=== PATIENT | female | born 1960 | race Caucasian/White ===

== ENCOUNTER 2023-08-29 06:44 | Day surgery (SDC) | payer SELFPAY ==
[2023-08-29] MEDS ORDERED: Propofol 200 MG/20 ML SDV ONE (07:15)
[2023-08-29] MEDS ORDERED: fentaNYL 50 MCG/ML SDV ONE (07:15)
[2023-08-29] MEDS ORDERED: Midazolam 1 MG/ML 2 ML SDV ONE (07:15)
[2023-08-29] MEDS: Lactated Ringers 1,000 ML IV SCH (07:26)
[2023-08-29 09:35] VITALS: BP 114/69; PULSE 62
== END 2023-08-29 09:48 | disposition home or self-care (01) ==
LOC: JP.SDS 06:44
PROVIDERS: ATTEND Student in an Organized Health Care Education/Training Program
DX: Z12.11 Encounter for screening for malignant neoplasm of colon (principal); K63.5 Polyp of colon; D12.3 Benign neoplasm of transverse colon; K21.9 Gastro-esophageal reflux disease without esophagitis; R73.9 Hyperglycemia, unspecified; E78.5 Hyperlipidemia, unspecified; Z79.899 Other long term (current) drug therapy; Z88.5 Allergy status to narcotic agent
CPT/HCPCS: 88305; J2250; J2704; J3010; J7120